=== PATIENT | female | born 1985 | race Caucasian/White ===

== ENCOUNTER 2019-04-11 09:17 | Emergency (ER) | payer MEDICAID, OTHER ==
[~2019-04-11] VITALS: Ht 175.3 cm; Wt 98.4 kg
[~2019-04-11 09:17] MED LIST: CYCL5TAB PO; MELO7.5T5 PO; NAPR-514 PO; ONDA4TAB10 SL; OXYC1TAB15 PO; PNV1TABL25 PO
[2019-04-11 09:30] VITALS: BP 123/56
--- NOTE | 2019-04-11 09:49 | PHYS DOC ---
Past Medical History Past Medical History: Anxiety, Bipolar, Other Additional Past Medical Histor: ptsd (FRED VILLALBA APRN) Past Surgical History: Cholecystectomy, , Tubal ligation, Other Additional Past Surgical Histo: SPINAL TAP (FRED VILLALBA APRN) Alcohol Use: None Drug Use: None (FRED VILLALBA APRN) Adult General Chief Complaint Chief Complaint: PAIN ON URINATION HPI HPI Patient is a 34 year old female who presents with multiple symptoms. The patient states for the last several days she's been having dysuria, frequency, bilateral flank pain, chills, diarrhea, has been unable to keep solid foods down. Rates the first day of the symptoms she had 102 fever. She rates her pain as 9 out of 10 in severity and sharp and states the pain is localized to her flanks. (FRED VILLALBA APRN) Review of Systems Review of Systems Constitutional: Reports fever or chills [] Eyes: Denies change in visual acuity, redness, or eye pain [] HENT: Denies nasal congestion or sore throat [] Respiratory: Denies cough or shortness of breath [] Cardiovascular: No additional information not addressed in HPI [] GI: Reports bilateral flank pain, nausea, vomiting, and diarrhea. Denies : Reports frequency, and dysuria. Musculoskeletal: Reports back pain. Integument: Denies rash or skin lesions [] Neurologic: Denies headache, focal weakness or sensory changes [] Endocrine: Denies polyuria or polydipsia [] Complete systems were reviewed and found to be within normal limits, except as documented in this note. (FRED VILLALBA APRN) Current Medications Current Medications Current Medications Medications (Trade) Dose Ordered Sig/Ivonne Start Time Stop Time Status Last Admin Dose Admin Dicyclomine HCl (Bentyl) 10 mg 1X STAT 04/11/19 09:41 04/11/19 09:45 DC 04/11/19 09:56 10 MG Fentanyl Citrate (Fentanyl 2ml Vial) 50 mcg 1X ONCE 04/11/19 09:45 04/11/19 09:46 DC 04/11/19 09:58 50 MCG Ondansetron HCl (Zofran) 4 mg 1X ONCE 04/11/19 09:45 04/11/19 09:46 DC 04/11/19 09:57 4 MG Sodium Chloride 1,000 ml @ 1,000 mls/hr 1X ONCE 04/11/19 09:45 04/11/19 10:44 DC 04/11/19 09:56 1,000 MLS/HR (FRED OCHOA DO) Allergies Allergies Allergies Coded Allergies Type Severity Reaction Last Updated Verified No Known Drug Allergies 04/11/19 No (FRED OCHOA DO) Physical Exam Physical Exam Constitutional: Well developed, well nourished, no acute distress, non-toxic appearance. [] HENT: Normocephalic, atraumatic, bilateral external ears normal, oropharynx moist, no oral exudates, nose normal. [] Eyes: PERRLA, EOMI, conjunctiva normal, no discharge. [] Neck: Normal range of motion, no tenderness, supple, no stridor. [] Cardiovascular:Heart rate regular rhythm, no murmur [] Lungs & Thorax: Bilateral breath sounds clear to auscultation [] Abdomen: Bowel sounds normal, soft, diffuse tenderness, no masses, no pulsatile masses. [] Skin: Warm, dry, no erythema, no rash. [] Back: mild tenderness, no CVA tenderness. [] Neurologic: Alert and oriented X 3, normal motor function, normal sensory function, no focal deficits noted. [] Psychologic: Affect normal, judgement normal, mood normal. [] (FRED VILLALBA APRN) Current Patient Data Vital Signs Vital Signs Date Time Temp Pulse Resp B/P (MAP) Pulse Ox O2 Delivery O2 Flow Rate FiO2 04/11/19 10:35 16 99 Room Air 04/11/19 09:30 98.3 78 123/56 (78) 98.3 (FRED OCHOA DO) Lab Values Laboratory Tests Test 04/11/19 09:30 04/11/19 09:41 Urine Collection Type Unknown Urine Color Katrina Urine Clarity Clear Urine pH 6.5 Urine Specific Hamilton 1.025 Urine Protein Negative mg/dL (NEG-TRACE) Urine Glucose (UA) Negative mg/dL (NEG) Urine Ketones (Stick) Negative mg/dL (NEG) Urine Blood Negative (NEG) Urine Nitrite Negative (NEG) Urine Bilirubin Negative (NEG) Urine Urobilinogen Dipstick 1.0 mg/dL (0.2 mg/dL) Urine Leukocyte Esterase Small (NEG) Urine RBC Rare /HPF (0-2) Urine WBC 11-20 /HPF (0-4) Urine Squamous Epithelial Cells Many /LPF Urine Bacteria Few /HPF (0-FEW) Urine Mucus Mod /LPF White Blood Count 6.8 x10^3/uL (4.0-11.0) Red Blood Count 4.79 x10^6/uL (3.50-5.40) Hemoglobin 14.7 g/dL (12.0-15.5) Hematocrit 43.8 % (36.0-47.0) Mean Corpuscular Volume 91 fL (79-100) Mean Corpuscular Hemoglobin 31 pg (25-35) Mean Corpuscular Hemoglobin Concent 34 g/dL (31-37) Red Cell Distribution Width 13.1 % (11.5-14.5) Platelet Count 182 x10^3/uL (140-400) Neutrophils (%) (Auto) 77 % (31-73) H Lymphocytes (%) (Auto) 16 % (24-48) L Monocytes (%) (Auto) 4 % (0-9) Eosinophils (%) (Auto) 3 % (0-3) Basophils (%) (Auto) 0 % (0-3) Neutrophils # (Auto) 5.2 x10^3/uL (1.8-7.7) Lymphocytes # (Auto) 1.1 x10^3/uL (1.0-4.8) Monocytes # (Auto) 0.3 x10^3/uL (0.0-1.1) Eosinophils # (Auto) 0.2 x10^3/uL (0.0-0.7) Basophils # (Auto) 0.0 x10^3/uL (0.0-0.2) Sodium Level 141 mmol/L (136-145) Potassium Level 3.6 mmol/L (3.5-5.1) Chloride Level 104 mmol/L (98-107) Carbon Dioxide Level 26 mmol/L (21-32) Anion Gap 11 (6-14) Blood Urea Nitrogen 12 mg/dL (7-20) Creatinine 0.9 mg/dL (0.6-1.0) Estimated GFR (Cockcroft-Gault) 72.6 BUN/Creatinine Ratio 13 (6-20) Glucose Level 98 mg/dL (70-99) Calcium Level 9.2 mg/dL (8.5-10.1) Magnesium Level 1.9 mg/dL (1.8-2.4) Total Bilirubin 1.0 mg/dL (0.2-1.0) Aspartate Amino Transferase (AST) 12 U/L (15-37) L Alanine Aminotransferase (ALT) 13 U/L (14-59) L Alkaline Phosphatase 65 U/L (46-116) Total Protein 8.1 g/dL (6.4-8.2) Albumin 4.5 g/dL (3.4-5.0) Albumin/Globulin Ratio 1.3 (1.0-1.7) Lipase 229 U/L (73-393) Laboratory Tests 04/11/19 09:41 Laboratory Tests 04/11/19 09:41 Microbiology 04/11/19 Urine Culture - Final, Complete 04/11/19 Urine Culture Result 1 (EDGAR) - Final, Complete (FRED OCHOA DO) Lab Values Laboratory Tests Test 04/11/19 09:30 04/11/19 09:41 Urine Collection Type Unknown Urine Color Katrina Urine Clarity Clear Urine pH 6.5 Urine Specific Hamilton 1.025 Urine Protein Negative mg/dL (NEG-TRACE) Urine Glucose (UA) Negative mg/dL (NEG) Urine Ketones (Stick) Negative mg/dL (NEG) Urine Blood Negative (NEG) Urine Nitrite Negative (NEG) Urine Bilirubin Negative (NEG) Urine Urobilinogen Dipstick 1.0 mg/dL (0.2 mg/dL) Urine Leukocyte Esterase Small (NEG) Urine RBC Rare /HPF (0-2) Urine WBC 11-20 /HPF (0-4) Urine Squamous Epithelial Cells Many /LPF Urine Bacteria Few /HPF (0-FEW) Urine Mucus Mod /LPF White Blood Count 6.8 x10^3/uL (4.0-11.0) Red Blood Count 4.79 x10^6/uL (3.50-5.40) Hemoglobin 14.7 g/dL (12.0-15.5) Hematocrit 43.8 % (36.0-47.0) Mean Corpuscular Volume 91 fL (79-100) Mean Corpuscular Hemoglobin 31 pg (25-35) Mean Corpuscular Hemoglobin Concent 34 g/dL (31-37) Red Cell Distribution Width 13.1 % (11.5-14.5) Platelet Count 182 x10^3/uL (140-400) Neutrophils (%) (Auto) 77 % (31-73) H Lymphocytes (%) (Auto) 16 % (24-48) L Monocytes (%) (Auto) 4 % (0-9) Eosinophils (%) (Auto) 3 % (0-3) Basophils (%) (Auto) 0 % (0-3) Neutrophils # (Auto) 5.2 x10^3/uL (1.8-7.7) Lymphocytes # (Auto) 1.1 x10^3/uL (1.0-4.8) Monocytes # (Auto) 0.3 x10^3/uL (0.0-1.1) Eosinophils # (Auto) 0.2 x10^3/uL (0.0-0.7) Basophils # (Auto) 0.0 x10^3/uL (0.0-0.2) Sodium Level 141 mmol/L (136-145) Potassium Level 3.6 mmol/L (3.5-5.1) Chloride Level 104 mmol/L (98-107) Carbon Dioxide Level 26 mmol/L (21-32) Anion Gap 11 (6-14) Blood Urea Nitrogen 12 mg/dL (7-20) Creatinine 0.9 mg/dL (0.6-1.0) Estimated GFR (Cockcroft-Gault) 72.6 BUN/Creatinine Ratio 13 (6-20) Glucose Level 98 mg/dL (70-99) Calcium Level 9.2 mg/dL (8.5-10.1) Magnesium Level 1.9 mg/dL (1.8-2.4) Total Bilirubin 1.0 mg/dL (0.2-1.0) Aspartate Amino Transferase (AST) 12 U/L (15-37) L Alanine Aminotransferase (ALT) 13 U/L (14-59) L Alkaline Phosphatase 65 U/L (46-116) Total Protein 8.1 g/dL (6.4-8.2) Albumin 4.5 g/dL (3.4-5.0) Albumin/Globulin Ratio 1.3 (1.0-1.7) Lipase 229 U/L (73-393) Laboratory Tests 04/11/19 09:41 Laboratory Tests 04/11/19 09:41 (FRED VILLALBA APRN) EKG EKG [] (FRED VILLALBA APRN) Radiology/Procedures Radiology/Procedures [][facility] [address] [place] [address] IMAGING REPORT Signed PATIENT: AMAYA MENJIVAR MACCOUNT: [id number] : 1985 LOCATION: ER AGE: 34 SEX: F EXAM STATUS: REG ER ORD. PHYSICIAN: FRED VILLALBA APRN REASON: bilateral flank pain, fever PROCEDURE: CT ABDOMEN PELVIS WO CONTRAST EXAM: CT ABDOMEN/PELVIS WITHOUT CONTRAST. HISTORY: Bilateral flank pain and fever. TECHNIQUE: Computed tomography of the abdomen and pelvis was performed without intravenous contrast. COMPARISON: None. FINDINGS: Lung windows through the visualized portions of the bases reveal a pleural-based 3 mm nodule in the left lower lobe on image 11 is likely benign at this small size. There is mild basilar atelectasis. Bone windows reveal no suspicious lesions. The gallbladder is surgically absent. The liver, spleen, adrenal glands and pancreas are unremarkable without contrast. There are no renal or ureteral calculi. The kidneys are unremarkable without contrast. There are no pathologically enlarged lymph nodes. The appendix is not inflamed. There is no small bowel obstruction. A cystic mass is noted along the right posterior aspect of the uterus and measures 6.4 x 6.3 cm. This appears to be separate from the right ovary and likely reflects an adnexal cyst. The left ovary is seen separately. A surgical clip is noted in the region of the left adnexa. IMPRESSION: 1. A 6.4 cm right hemipelvic cyst is likely associated with the right adnexa. This could be further assessed sonographically on a nonemergent basis. *One or more of the following individualized dose reduction techniques were utilized for this examination: 1. Automated exposure control. 2. Adjustment of the mA and/or kV according to patient size. 3. Use of iterative reconstruction technique. Electronically signed by: Tree Minor MD (04/11/2019 10:46 AM) [facility] DICTATED and SIGNED BY: MARY MINOR MD DATE: 04/11/19 1046 (FRED VILLALBA APRN) Course & Med Decision Making Course & Med Decision Making Pertinent Labs and Imaging studies reviewed. (See chart for details) Will get labs, CT, UA, and give supportive care. IMPRESSION: 1. A 6.4 cm right hemipelvic cyst is likely associated with the right adnexa. This could be further assessed sonographically on a nonemergent basis. Labs were unremarkable. UA shows leukocytes. Will treat for UTI with Keflex. W ill have follow up with [facility] regarding cyst. Will also d/c home on Zofran. (FRED VILLALBA APRN) Dragon Disclaimer Dragon Disclaimer This electronic medical record was generated, in whole or in part, using a voice recognition dictation system. (FRED VILLALBA APRN) Departure Departure Impression: Primary Impression: UTI (urinary tract infection) Additional Impressions: Pelvic cyst Nausea vomiting and diarrhea Disposition: HOME, SELF-CARE Condition: STABLE Referrals: NON,STAFF (PCP) LAMAR WHATLEY MD Patient Instructions: Urinary Tract Infection Additional Instructions: Thank you for visiting [facility]. We appreciate you trusting us with your care. If any additional problems come up don't hesitate to return to visit us. Please follow up with your primary care provider so they can plan additional care if needed and know about the problem that you had. If symptoms worsen come back to the Emergency Department. Any concerning symptoms that start such as chest pain, shortness of air, weakness or numbness on one side of the body, running high fevers or any other concerning symptoms return to the ER. Please follow-up with [facility] for further workup regarding the pelvic cyst. You have been prescribed an antibiotic today to help fight your infection. Please take all of the antibiotic as directed. If after 48 hours the infection is not improving, please return for more care. If the infection worsens, return to ER for additional care. Please fill your medications at any pharmacy and follow the prescription instructions. Scripts Ondansetron (ONDANSETRON ODT) 4 Mg Tab.rapdis 1 TAB PO PRN Q6-8HRS, #16 TAB Prov: FRED VILLALBA APRN 04/11/19 Cephalexin (KEFLEX) 500 Mg Capsule 1 CAP PO BID for 7 Days, #14 CAP 0 Refills Prov: FRED VILLALBA APRN 04/11/19 Attending Signature Attending Signature I have reviewed the PA/RN ORTHO's note and plan of care. I was available for consultation as needed during the patient's visit in the emergency department. I agree with the clinical impression, plan, and disposition. (FRED OCHOA DO) Problem Qualifiers Primary Impression: UTI (urinary tract infection) Urinary tract infection type: acute cystitis Hematuria presence: without hematuria Qualified Codes: N30.00 - Acute cystitis without hematuria FRED VILLALBA APRN Apr 11, 2019 09:49 FRED OCHOA DO Apr 15, 2019 19:43
[2019-04-11 09:54] LABS: BASO % 0 % (0-3); EOS # 0.2 x10^3/uL (0.0-0.7); EOS % 3 % (0-3); HEMATOCRIT 43.8 % (36.0-47.0); HEMOGLOBIN 14.7 g/dL (12.0-15.5); LYMPH # 1.1 x10^3/uL (1.0-4.8); LYMPH % 16 % (24-48); MEAN CORPUSCULAR HEMOGLOBIN 31 pg (25-35); MEAN CORPUSCULAR HGB CONC 34 g/dL (31-37); MEAN CORPUSCULAR VOLUME 91 fL (79-100); MONO # 0.3 x10^3/uL (0.0-1.1); MONO % 4 % (0-9); NEUT # 5.2 x10^3/uL (1.8-7.7); NEUT % 77 % (31-73); PLATELET COUNT 182 x10^3/uL (140-400); RED BLOOD COUNT 4.79 x10^6/uL (3.50-5.40); RED CELL DISTRIBUTION WIDTH 13.1 % (11.5-14.5); WHITE BLOOD COUNT 6.8 x10^3/uL (4.0-11.0)
[2019-04-11 09:56] LABS: BILIRUBIN,URINE NEGATIVE (NEG); CLARITY,URINE CLEAR; COLOR,URINE AMBER; NITRITE,URINE NEGATIVE (NEG); PH,URINE 6.5; PROTEIN,URINE NEGATIVE (NEG-TRACE)
[2019-04-11] MEDS: IV NORMAL SALINE 1000ML BAG 1,000 ML IV ONE (09:56)
[2019-04-11] MEDS: DICYCLOMINE HCL 10 MG CAPSULE PO STA (09:56)
[2019-04-11] MEDS: ONDANSETRON PF 4 MG/2 ML VIAL. IV ONE (09:57)
[2019-04-11] MEDS: fentaNYL PF VIAL 100 MCG/2 ML VIAL IV ONE (09:58)
[2019-04-11 10:01] LABS: CALCIUM 9.2 mg/dL (8.5-10.1); CREATININE 0.9 mg/dL (0.6-1.0); GFR 72.6; POTASSIUM 3.6 mmol/L (3.5-5.1)
[2019-04-11 10:05] LABS: BACTERIA,URINE FEW /HPF (0-FEW); RBC,URINE RARE /HPF (0-2); SQUAMOUS EPITHELIAL CELL,UR MANY /LPF
[2019-04-11 10:06] LABS: ALBUMIN 4.5 g/dL (3.4-5.0); ALBUMIN/GLOBULIN RATIO 1.3 (1.0-1.7); MAGNESIUM 1.9 mg/dL (1.8-2.4); TOTAL PROTEIN 8.1 g/dL (6.4-8.2)
--- NOTE | 2019-04-11 10:49 | RAD ---
EXAM: CT ABDOMEN/PELVIS WITHOUT CONTRAST. HISTORY: Bilateral flank pain and fever. TECHNIQUE: Computed tomography of the abdomen and pelvis was performed without intravenous contrast. COMPARISON: None. FINDINGS: Lung windows through the visualized portions of the bases reveal a pleural-based 3 mm nodule in the left lower lobe on image 11 is likely benign at this small size. There is mild basilar atelectasis. Bone windows reveal no suspicious lesions. The gallbladder is surgically absent. The liver, spleen, adrenal glands and pancreas are unremarkable without contrast. There are no renal or ureteral calculi. The kidneys are unremarkable without contrast. There are no pathologically enlarged lymph nodes. The appendix is not inflamed. There is no small bowel obstruction. A cystic mass is noted along the right posterior aspect of the uterus and measures 6.4 x 6.3 cm. This appears to be separate from the right ovary and likely reflects an adnexal cyst. The left ovary is seen separately. A surgical clip is noted in the region of the left adnexa. IMPRESSION: 1. A 6.4 cm right hemipelvic cyst is likely associated with the right adnexa. This could be further assessed sonographically on a nonemergent basis. *One or more of the following individualized dose reduction techniques were utilized for this examination: 1. Automated exposure control. 2. Adjustment of the mA and/or kV according to patient size. 3. Use of iterative reconstruction technique. Electronically signed by: Tree Minor MD (04/11/2019 10:46 AM) [facility]
[2019-04-11] MEDS ORDERED: ONDA4TAB12 PO (11:42)
[2019-04-11] MEDS ORDERED: CEPH-264 PO (11:42)
== END 2019-04-11 11:54 | disposition home or self-care (01) ==
LOC: ER 09:17
DX: N39.0 Urinary tract infection, site not specified (principal); N94.89 Other specified conditions associated with female genital organs and menstrual cycle; R19.7 Diarrhea, unspecified; F31.9 Bipolar disorder, unspecified; Z90.49 Acquired absence of other specified parts of digestive tract; Z98.51 Tubal ligation status
CPT/HCPCS: 36415; 74176; 80053; 81001; 83690; 83735; 85025; 87086; 96361; 96374; 96375; 99285; J2405; J3010; J7030

== ENCOUNTER 2019-08-26 05:17 | Emergency (ER) | payer MEDICAID ==
[~2019-08-26 05:17] MED LIST changes: +CEPH-264 PO; +ONDA4TAB12 PO
[2019-08-26] MEDS ORDERED: ONDANSETRON ODT 4 MG TAB.RAPDIS. PO ONE (05:40)
[2019-08-26] MEDS ORDERED: LIDOCAINE (700MG/PATCH) PATCH. TD ONE (05:40)
[2019-08-26 09:40] LABS: BACTERIA,URINE MANY /HPF (0-FEW); BILIRUBIN,URINE NEGATIVE (NEG); CLARITY,URINE HAZY; COLOR,URINE YELLOW; NITRITE,URINE NEGATIVE (NEG); PROTEIN,URINE NEGATIVE (NEG-TRACE); RBC,URINE 0 /HPF (0-2); SQUAMOUS EPITHELIAL CELL,UR MANY /LPF
== END 2019-08-26 07:20 | disposition home or self-care (01) ==
LOC: ER 05:17
DX: G89.29 Other chronic pain (principal); M54.5 Low back pain; R30.0 Dysuria
CPT/HCPCS: 81001; 81025; 87086; 99283; Q0162

== ENCOUNTER 2020-02-10 14:15 | Emergency (ER) | payer MEDICAID | END 2020-02-10 16:15 | disposition left against medical advice (07) | LOC: ER 14:15 | DX: M25.511 Pain in right shoulder (principal); Z53.21 Procedure and treatment not carried out due to patient leaving prior to being seen by health care provider ==

== ENCOUNTER 2020-10-11 18:19 | Emergency (ER) | payer MEDICAID ==
[~2020-10-11] VITALS: Ht 170.2 cm; Wt 97.2 kg
[2020-10-11 18:37] VITALS: BP 133/91
--- NOTE | 2020-10-11 18:47 | PHYS DOC ---
Past Medical History Past Medical History: Anxiety, Bipolar, Other Additional Past Medical Histor: ptsd; chronic back pain; ectopic Past Surgical History: Cholecystectomy, , Tubal ligation, Other Additional Past Surgical Histo: SPINAL TAP Smoking Status: Former Smoker Alcohol Use: None Drug Use: None General Adult EDM: Chief Complaint: FINGER INJURY HPI: HPI: Patient is a 35 year old female who presents with left fifth finger pain. Last night she started to lose her balance so she went to grab a hold of the couch and she bent her left fifth finger backward. She has pain and bruising to the posterior PIP. She also states that she cannot fully bend it into the fist. There is some swelling noted. Slight tenderness with palpation. Bruising noted. Rates is her discomfort at a 6 out of 10. Denies radiation of pain. Patient has a history of , tubal ligation, smoker, cholecystectomy, bipolar, anxiety, PTSD, chronic back pain. Review of Systems: Review of Systems: Constitutional: Denies fever or chills. [] Eyes: Denies change in visual acuity. [] HENT: Denies nasal congestion or sore throat. [] Respiratory: Denies cough or shortness of breath. [] Cardiovascular: Denies chest pain or + left fifth finger 1+ edema. [] GI: Denies abdominal pain, nausea, vomiting, bloody stools or diarrhea. [] : Denies dysuria. [] Musculoskeletal: Denies back pain. + Left fifth finger joint pain. [] Integument: Denies rash. + Left fifth finger bruising [] Neurologic: Denies headache, focal weakness or sensory changes. [] Endocrine: Denies polyuria or polydipsia. [] Lymphatic: Denies swollen glands. [] Psychiatric: Denies depression or anxiety. [] Heart Score: C/O Chest Pain: No Risk Factors: Risk Factors: DM, Current or recent (<one month) smoker, HTN, HLP, family history of CAD, obesity. Risk Scores: Score 0 - 3: 2.5% MACE over next 6 weeks - Discharge Home Score 4 - 6: 20.3% MACE over next 6 weeks - Admit for Clinical Observation Score 7 - 10: 72.7% MACE over next 6 weeks - Early Invasive Strategies Allergies: Allergies: Allergies Coded Allergies Type Severity Reaction Last Updated Verified No Known Drug Allergies 04/11/19 No Physical Exam: PE: Constitutional: Well developed, well nourished, no acute distress, non-toxic appearance. [] HENT: Normocephalic, atraumatic, bilateral external ears normal, oropharynx moist, no oral exudates, nose normal. [] Eyes: PERRLA, EOMI, conjunctiva normal, no discharge. [] Neck: Normal range of motion, no tenderness, supple, no stridor. [] Cardiovascular:Heart rate regular rhythm, no murmur [] Lungs & Thorax: Bilateral breath sounds clear to auscultation [] Abdomen: Bowel sounds normal, soft, no tenderness, no masses, no pulsatile masses. [] Skin: Warm, dry, no erythema, no rash. Left fifth finger bruising [] Back: No tenderness, no CVA tenderness. [] Extremities: Left fifth finger PIP tenderness, no cyanosis, no clubbing, left fifth finger PIP ROM not intact, left fifth finger 1+ edema. [] Neurologic: Alert and oriented X 3, normal motor function, normal sensory function, no focal deficits noted. [] Psychologic: Affect normal, judgement normal, mood normal. [] EKG: EKG: [] Radiology/Procedures: Radiology/Procedures: [] Course & Med Decision Making: Course & Med Decision Making Pertinent Labs and Imaging studies reviewed. (See chart for details) See HPI. Alert and oriented x4. Ambulatory with a steady gait. Radial pulse strong and present. Skin pink warm and dry. Cap refill less than 2 seconds. Limited range of motion at the metacarpophalangeal and limited range of motion at the PIP. Bruising at the distal to the PIP and usp to the metacarpal phalangeal. 1+ swelling. No injury to the nailbed. No laceration or abrasion. Sensations intact. Patient is single be placed in a AlumaFoam splint. Dr. Yap read the x-ray as no acute fractures. Patient is placed in a finger splint. [] Dragon Disclaimer: Dragon Disclaimer: This electronic medical record was generated, in whole or in part, using a voice recognition dictation system. Departure Departure Impression: Primary Impression: Finger sprain Qualified Codes: S63.617A - Unspecified sprain of left little finger, initial encounter Disposition: HOME / SELF CARE / HOMELESS Condition: STABLE Referrals: UNKNOWN PCP NAME (PCP) Patient Instructions: Finger Sprain, Finger Sprain-SportsMed Additional Instructions: Follow-up with primary care provider or with [facility] as they have a hand mechanical engineering specialist. We do not have a hand doctor here. Use ice. Keep the splint on to help with pain and swelling. Take ibuprofen for pain. ACACIA ELIZABETH APRN Oct 11, 2020 18:47
--- NOTE | 2020-10-11 19:44 | RAD ---
Exam: Left hand 3 views INDICATION: Fifth finger injury TECHNIQUE: Frontal, lateral oblique views of the left hand Comparisons: None FINDINGS: Minimal cortical step-off noted at the distal phalanx of the fifth digit. Bone mineralization is norm al. Joint spaces are well-maintained. Soft tissues are unremarkable IMPRESSION: Nondisplaced fracture involving the distal phalanx of the fifth digit. Electronically signed by: Dustin Garcia MD (10/11/2020 7:42 PM) [facility]
== END 2020-10-11 19:24 | disposition home or self-care (01) ==
LOC: ER 18:19
DX: S63.617A Unspecified sprain of left little finger, initial encounter (principal); G89.29 Other chronic pain; X50.9XXA Other and unspecified overexertion or strenuous movements or postures, initial encounter; F31.9 Bipolar disorder, unspecified; Z87.891 Personal history of nicotine dependence; Y93.89 Activity, other specified; Y92.89 Other specified places as the place of occurrence of the external cause; Y99.8 Other external cause status
CPT/HCPCS: 73130; 99283

== ENCOUNTER 2020-12-14 08:00 | Emergency (ER) | payer MEDICAID ==
[~2020-12-14] VITALS: Ht 177.8 cm; Wt 98.0 kg
[2020-12-14 08:22] VITALS: BP 178/90
[2020-12-14] MEDS ORDERED: IBUPROFEN 400 MG TABLET. PO ONE (09:30)
--- NOTE | 2020-12-14 10:02 | RAD ---
XR CHEST 1V History: Short of air, cough. Comparison: None. Technique: AP radiograph of the chest. Findings: The lungs are adequately and symmetrically inflated. No airspace consolidation, pleural effusion or p neumothorax. The cardiomediastinal silhouette and pulmonary vasculature are within normal limits. No acute osseous abnormality. Soft tissues are unremarkable. Impression: 1. No acute cardiopulmonary process. Electronically signed by: Serafin Saravia MD (12/14/2020 9:59 AM) [facility]
--- NOTE | 2020-12-14 10:21 | PHYS DOC ---
Past Medical History Past Medical History: Anxiety, Bipolar, Other Additional Past Medical Histor: ptsd; chronic back pain; ectopic Past Surgical History: Other Additional Past Surgical Histo: SPINAL TAP Smoking Status: Current Every Day Smoker Alcohol Use: None Drug Use: None General Adult EDM: Chief Complaint: HEADACHE HPI: HPI: Patient is a 35 year old female who present to ER for evaluation of fever chills, headache, cough since last . Patient denies any neck stiffness, denies any abdominal pain, no nausea vomiting. Patient is not vaccinated for COVID-19. Patient would like to be checked for Covid infection. Review of Systems: Review of Systems: Constitutional: Denies fever or chills. [] Eyes: Denies change in visual acuity. [] HENT: Denies nasal congestion or sore throat. [] Respiratory: Positive for cough, no trouble breathing Cardiovascular: Denies chest pain or edema. [] GI: Denies abdominal pain, nausea, vomiting, bloody stools or diarrhea. [] : Denies dysuria. [] Musculoskeletal: Denies back pain or joint pain. [] Integument: Denies rash. [] Neurologic: Positive headache, focal weakness or sensory changes. [] Endocrine: Denies polyuria or polydipsia. [] Lymphatic: Denies swollen glands. [] Psychiatric: Denies depression or anxiety. [] Heart Score: C/O Chest Pain: N/A Risk Factors: Risk Factors: DM, Current or recent (<one month) smoker, HTN, HLP, family history of CAD, obesity. Risk Scores: Score 0 - 3: 2.5% MACE over next 6 weeks - Discharge Home Score 4 - 6: 20.3% MACE over next 6 weeks - Admit for Clinical Observation Score 7 - 10: 72.7% MACE over next 6 weeks - Early Invasive Strategies Current Medications: Current Medications Medications (Trade) Dose Ordered Sig/Ivonne Start Time Stop Time Status Last Admin Dose Admin Ibuprofen (Motrin) 800 mg 1X ONCE 12/14/20 09:30 12/14/20 09:31 DC 12/14/20 09:30 800 MG Allergies: Allergies: Allergies Coded Allergies Type Severity Reaction Last Updated Verified No Known Drug Allergies 12/14/20 No Physical Exam: PE: Constitutional: Well developed, well nourished, no acute distress, non-toxic appearance. [] HENT: Normocephalic, atraumatic, bilateral external ears normal, oropharynx moist, no oral exudates, nose normal. [] Eyes: PERRLA, EOMI, conjunctiva normal, no discharge. [] Neck: Normal range of motion, no tenderness, supple, no stridor. [] Cardiovascular:Heart rate regular rhythm, no murmur [] Lungs & Thorax: Bilateral breath sounds clear to auscultation [] Abdomen: Bowel sounds normal, soft, no tenderness, no masses, no pulsatile masses. [] Skin: Warm, dry, no erythema, no rash. [] Back: No tenderness, no CVA tenderness. [] Extremities: No tenderness, no cyanosis, no clubbing, ROM intact, no edema. [] Neurologic: Alert and oriented X 3, normal motor function, normal sensory function, no focal deficits noted. [] Psychologic: Affect normal, judgement normal, mood normal. [] Current Patient Data: Labs: Laboratory Tests Test 12/14/20 09:30 SARS-CoV-2 Antigen (Rapid) Positive (NEGATIVE) *A Vital Signs: Vital Signs Date Time Temp Pulse Resp B/P (MAP) Pulse Ox O2 Delivery O2 Flow Rate FiO2 12/14/20 08:22 97.8 90 16 178/90 98 97.8 EKG: EKG: [] Radiology/Procedures: Radiology/Procedures: [facility] [address] [place] [address] IMAGING REPORT Signed PATIENT: OTTO MACCOUNT: [id number] : 1985 LOCATION: ER AGE: 35 SEX: F EXAM STATUS: REG ER ORD. PHYSICIAN: TATUM HONEYCUTT DO REASON: soa, cough PROCEDURE: CHEST AP ONLY XR CHEST 1V History: Short of air, cough. Comparison: None. Technique: AP radiograph of the chest. Findings: The lungs are adequately and symmetrically inflated. No airspace consolidation, pleural effusion or pneumothorax. The cardiomediastinal silhouette and pulmonary vasculature are within normal limits. No acute osseous abnormality. Soft tissues are unremarkable. Impression: 1. No acute cardiopulmonary process. Electronically signed by: Serafin Saravia MD (12/14/2020 9:59 AM) [facility] DICTATED and SIGNED BY: SERAFIN SARAVIA MD DATE: 12/14/20 [id number] 0 Course & Med Decision Making: Course & Med Decision Making Pertinent Labs and Imaging studies reviewed. (See chart for details) Patient is a 34-year-old female who present to ER due to cough, headache. Patient was tested positive for COVID-19, patient required no oxygen, patient will be discharged home. Dragon Disclaimer: Dragon Disclaimer: This electronic medical record was generated, in whole or in part, using a voice recognition dictation system. Departure Departure Impression: Primary Impression: COVID-19 virus infection Disposition: HOME / SELF CARE / HOMELESS Condition: STABLE Referrals: UNKNOWN PCP NAME (PCP) Patient Instructions: Viral Syndrome Additional Instructions: You have been tested for or diagnosed with COVID-19. It is an infection caused by a new type of coronavirus. COVID-19 will cause cold-like or mild flu symptoms in most. It can cause more severe symptoms like problems breathing in some. There is no treatment for COVID-19. The body will clear the infection over time. Self-care will help to ease discomfort. Steps to Take: Self-Care Rest as needed. Healthy habits may help you feel better. Steps include: Choose healthy foods including fruits and vegetables. Drink water throughout the day. Get plenty of sleep each night. If you smoke, try to quit. It may ease breathing. Avoid alcohol. Keep Others Healthy The virus can spread to others. Droplets are released every time you sneeze or cough. The droplets can get into the mouth, nose, or eyes of people near you and lead to infection. To lower the chances of spreading COVID-19 to others: Stay at home until your doctor has said it is safe to leave. If you tested positive this will mean staying isolated until both of the following are true: At least 7 days have passed since the start of illness. You are free of fever for at least 72 hours without the use of medicine. During this time: - Avoid public areas, events, or transportation. Do not return to work or school until your doctor has said it is safe to do so. - Call ahead if you need to go to a medical center. Let them know you may have COVID-19. It will help them guide you where to go. They may also ask you to wear a facemask when you come to the office. - If you call for emergency medical services, let them know you may have COVID- 19. While at home: - Try to avoid close contact with others. Stay about 6 feet away. - If possible, spend most of your time in a separate room from others. - Use a face mask if you will be in close contact with others such as sharing a room or vehicle. - Have someone wipe down common surfaces in the home. Use household die mounter every day on areas like doorknobs, counters, or sinks. - Cough or sneeze into a tissue. Throw the tissue away right after use. If a tissue is not available, cough or sneeze into your elbow. - Wash your hands often. Wash them after sneezing or coughing. Use soap and water and wash for at least 20 seconds. Alcohol based hand diamond cleaner can be used if soap and water is not available. - Do not prepare food for others. Avoid sharing personal items like forks, spoons, or toothbrushes. - Avoid close contact with pets while you are sick. There is no evidence of the virus passing to pets. This is a safety step until more is known about this virus. Isolation can be frustrating. Social interaction can help. Keep in touch with friends and family through phone and tech options. You can still interact with others in your home, just keep a safe distance of about 6 feet. Follow-up: Your doctors office will check in with you to see if there are any changes in your health. You may be asked to keep track of symptoms to share with them. They will also let you know when you are clear to be in public again. Problems to Look Out For: Contact your doctor if your recovery is not going as you expect. Get emergency care if you have problems such as: - Trouble breathing - Nonstop chest pain or pressure - Changes in awareness, confusion, or problems waking - Lips or face have bluish color - Worsening of symptoms If you think you have an emergency, call for emergency medical services right away. As taken from [facility] Prednisone (PREDNISONE) 20 Mg Tablet 1 TAB PO DAILY for 7 Days, #7 TAB Prov: TATUM HONEYCUTT DO 12/14/20 Azithromycin (ZITHROMAX) 250 Mg Tablet 1 PKG PO UD for 5 Days, #6 TAB Prov: TATUM HONEYCUTT DO 12/14/20 TATUM HONEYCUTT DO Dec 14, 2020 10:21
[2020-12-14] MEDS ORDERED: AZIT250T PO (10:46)
[2020-12-14] MEDS ORDERED: PRED20TA PO (10:47)
== END 2020-12-14 11:01 | disposition home or self-care (01) ==
LOC: ER 08:00
DX: U07.1 COVID-19 (principal); F31.9 Bipolar disorder, unspecified; G89.29 Other chronic pain; F17.200 Nicotine dependence, unspecified, uncomplicated
CPT/HCPCS: 71045; 87426; 99284

== ENCOUNTER 2021-06-28 16:19 | Emergency (ER) | payer MEDICAID ==
[~2021-06-28] VITALS: Ht 172.7 cm; Wt 104.0 kg
[~2021-06-28 16:19] MED LIST changes: +AZIT250T PO; +PRED20TA PO
[2021-06-28 18:24] LABS: BASO % 0 % (0-3); EOS # 0.4 x10^3/uL (0.0-0.7); EOS % 7 % (0-3); HEMATOCRIT 38.1 % (36.0-47.0); HEMOGLOBIN 12.2 g/dL (12.0-15.5); LYMPH # 2.1 x10^3/uL (1.0-4.8); LYMPH % 34 % (24-48); MEAN CORPUSCULAR HEMOGLOBIN 29 pg (25-35); MEAN CORPUSCULAR HGB CONC 32 g/dL (31-37); MEAN CORPUSCULAR VOLUME 89 fL (79-100); MONO # 0.3 x10^3/uL (0.0-1.1); MONO % 5 % (0-9); NEUT # 3.3 x10^3/uL (1.8-7.7); NEUT % 53 % (31-73); PLATELET COUNT 179 x10^3/uL (140-400); RED BLOOD COUNT 4.26 x10^6/uL (3.50-5.40); RED CELL DISTRIBUTION WIDTH 14.8 % (11.5-14.5); WHITE BLOOD COUNT 6.2 x10^3/uL (4.0-11.0)
--- NOTE | 2021-06-28 18:33 | PHYS DOC ---
Past Medical History Past Medical History: Anxiety, Bipolar, Other Additional Past Medical Histor: ptsd; chronic back pain; ectopic , rectal bleed Past Surgical History: Other Additional Past Surgical Histo: SPINAL TAP Smoking Status: Never Smoker Alcohol Use: None Drug Use: None General Adult EDM: Chief Complaint: RECTAL BLEED HPI: HPI: Patient is a 36 year old female with past medical history of anal fissures presents with the chief compliant of rectal bleeding. Patient states she has been previously worked up by colorectal surgery at [facility]. She state had episodes of rectal bleeding starting early this morning and epiosdes throughout the day. Patient states she called her [facility] doctor this AM and was told to go to ER to be evaluated. On exam patient is A and O x 4. Patient vital signs are stable- no tachycardic or hypotensive. Bleeding with with BMs. Review of Systems: Review of Systems: Constitutional: Denies fever or chills. [] Eyes: Denies change in visual acuity. [] HENT: Denies nasal congestion or sore throat. [] Respiratory: Denies cough or shortness of breath. [] Cardiovascular: Denies chest pain or edema. [] GI: Denies abdominal pain, nausea, vomiting, or diarrhea. [positive bloody stools ] : Denies dysuria. [positive rectal bleeding] Musculoskeletal: Denies back pain or joint pain. [] Integument: Denies rash. [] Neurologic: Denies headache, focal weakness or sensory changes. [] Endocrine: Denies polyuria or polydipsia. [] Lymphatic: Denies swollen glands. [] Psychiatric: Denies depression or anxiety. [] Heart Score: C/O Chest Pain: N/A Risk Factors: Risk Factors: DM, Current or recent (<one month) smoker, HTN, HLP, family history of CAD, obesity. Risk Scores: Score 0 - 3: 2.5% MACE over next 6 weeks - Discharge Home Score 4 - 6: 20.3% MACE over next 6 weeks - Admit for Clinical Observation Score 7 - 10: 72.7% MACE over next 6 weeks - Early Invasive Strategies Allergies: Allergies: Allergies Coded Allergies Type Severity Reaction Last Updated Verified No Known Drug Allergies 12/14/20 No Physical Exam: PE: Constitutional: Well developed, well nourished, no acute distress, non-toxic appearance. [] HENT: Normocephalic, atraumatic, bilateral external ears normal, oropharynx moist, no oral exudates, nose normal. [] Eyes: PERRLA, EOMI, conjunctiva normal, no discharge. [] Neck: Normal range of motion, no tenderness, supple, no stridor. [] Cardiovascular:Heart rate regular rhythm, no murmur [] Lungs & Thorax: Bilateral breath sounds clear to auscultation [] Abdomen: Bowel sounds normal, soft, no tenderness, no masses, no pulsatile masses. [] Skin: Warm, dry, no erythema, no rash. [] Back: No tenderness, no CVA tenderness. [] Extremities: No tenderness, no cyanosis, no clubbing, ROM intact, no edema. [] Neurologic: Alert and oriented X 3, normal motor function, normal sensory function, no focal deficits noted. [] Psychologic: Affect normal, judgement normal, mood normal. [] Current Patient Data: Labs: Laboratory Tests Test 06/28/21 18:03 POC Urine HCG, Qualitative Hcg negative (Negative) Vital Signs: Vital Signs Date Time Temp Pulse Resp B/P (MAP) Pulse Ox O2 Delivery O2 Flow Rate FiO2 06/28/21 16:45 97.6 70 18 129/78 (95) 98 Room Air 97.6 EKG: EKG: [] Radiology/Procedures: Radiology/Procedures: [] Course & Med Decision Making: Course & Med Decision Making Pertinent Labs and Imaging studies reviewed. (See chart for details) []With your history of anal fissures -- I suspect your current bleeding is caused by a new anal fissure. You have established care at [facility]-- with PCP and colorectal surgery. Despite your rectal bleeding your hemaglobin is stable. You have stable vital signs. You are stable to follow up outpatient with [facility]. Please call and schedule an appointment. Mai Disclaimer: Mai Disclaimer: This electronic medical record was generated, in whole or in part, using a voice recognition dictation system. Departure Departure Impression: Primary Impression: Rectal bleeding Disposition: HOME / SELF CARE / HOMELESS Condition: STABLE Referrals: UNKNOWN PCP NAME (PCP) Patient Instructions: Anal Fissure, Adult MARCY ZEE I DO Jun 28, 2021 18:33
[2021-06-28 18:38] VITALS: BP 121/68
== END 2021-06-28 18:37 | disposition home or self-care (01) ==
LOC: ER 16:19
DX: K62.5 Hemorrhage of anus and rectum (principal); G89.29 Other chronic pain
CPT/HCPCS: 36415; 81025; 85025; 99283